=== PATIENT | female | born 1970 | race Caucasian/White ===

== ENCOUNTER 2017-07-01 16:01 | Emergency (ER) | payer OTHER ==
[2017-07-01] MEDS ORDERED: Octyl 2-Cyanoacrylate 1 Tube TOP ONE (16:19)
--- NOTE | 2017-07-01 16:19 | EDM.PDOC ---
ED HPI GENERAL MEDICAL PROBLEM - General Chief Complaint: Laceration Stated Complaint: CUT INDEX FINGER ON RT HAND Time Seen by Provider: 07/01/17 16:16 Source of Information: Reports: Patient History Limitations: Reports: No Limitations - History of Present Illness INITIAL COMMENTS - FREE TEXT/NARRATIVE: History of present illness: [46-year-old female coming in with laceration to the inner aspect of the second digit of the right hand. Patient acute she cut it at work.] Review of systems: As per history of present illness and below otherwise all systems reviewed and negative. Past medical history: As per history of present illness and as reviewed below otherwise noncontributory. Surgical history: As per history of present illness and as reviewed below otherwise noncontributory. Social history: No reported history of drug or alcohol abuse. Family history: As per history of present illness and as reviewed below otherwise noncontributory. Physical exam: HEENT: Atraumatic, normocephalic, pupils reactive, negative for conjunctival pallor or scleral icterus, mucous membranes moist, throat clear, neck supple, nontender, trachea midline. Lungs: Clear to auscultation, breath sounds equal bilaterally, chest nontender. Heart: S1S2, regular, negative for clicks, rubs, or JVD. Abdomen: Soft, nondistended, nontender. Negative for masses or hepatosplenomegaly. Negative for costovertebral tenderness. Pelvis: Stable nontender. Genitourinary: Deferred. Rectal: Deferred. Extremities: Approximate 1/2 cm laceration to the anterior aspect of the second digit of right hand. Neurovascular unremarkable. Neuro: Awake, alert, oriented. Cranial nerves II through XII unremarkable. Cerebellum unremarkable. Motor and sensory unremarkable throughout. Exam nonfocal. Area cleaned well and Steri-Strips approximating edges well with Dermabond applied over top Diagnostics: [] Therapeutics: [Steri-Strips Dermabond] Impression: [Laceration approximately 1.5 cm] Plan: [Clean and dry hands] Definitive disposition and diagnosis as appropriate pending reevaluation and review of above. right index finger Pain Score (Numeric/FACES): 2 - Related Data Allergies Allergy/AdvReac Type Severity Reaction Status Date / Time No Known Allergies Allergy Verified 07/01/17 16:10 Home Meds: Home Meds Norethindrone-Ethinyl Estrad [Dasetta] 1 each PO DAILY 04/26/14 [History] Oxybutynin [Oxybutynin ER] 1 tab PO DAILY 04/26/14 [History] Warfarin [Coumadin] 5 mg PO ASDIRECTED 07/19/15 [History] Past Medical History Cardiovascular History: Reports: Blood Clots/VTE/DVT Other Neuro History: pt states "blood clot in the brain" Hematologic History: Reports: Anticoagulation Therapy - Infectious Disease History Infectious Disease History: Reports: Chicken Pox - Past Surgical History Musculoskeletal Surgical History: Reports: Knee Replacement Social & Family History - Family History Family Medical History: Noncontributory - Tobacco Use Smoking Status *Q: Current Every Day Smoker Years of Tobacco use: 5 Packs/Tins Daily: 0.2 - Caffeine Use Caffeine Use: Reports: Coffee, Energy Drinks, Soda, Tea - Alcohol Use Days Per Week of Alcohol Use: 0 Number of Drinks Per Day: 0 Total Drinks Per Week: 0 - Recreational Drug Use Recreational Drug Use: No ED ROS GENERAL - Review of Systems Review Of Systems: See Below (See history of present illness) ED EXAM, SKIN/RASH Exam: See Below (History of present illness) Course - Vital Signs Last Recorded V/S: Last Vital Signs Temp 36.6 C 07/01/17 16:08 Pulse 82 07/01/17 16:08 Resp 16 07/01/17 16:08 BP 110/63 07/01/17 16:08 Pulse Ox 96 07/01/17 16:08 Departure - Departure Time of Disposition: 16:18 Disposition: Home, Self-Care 01 Condition: Good Clinical Impression: Laceration - Discharge Information Instructions: Laceration Care, Adult, [id number], Stitches, Lenny, or Adhesive Wound Closure, [id number] Referrals: Derick Laguerre MD [Primary Care Provider] - Additional Instructions: The following information is given to patients seen in the emergency department who are being discharged to home. This information is to outline your options for follow-up care. We provide all patients seen in our emergency department with a follow-up referral. The need for follow-up, as well as the timing and circumstances, are variable depending upon the specifics of your emergency department visit. If you don't have a primary care physician on staff, we will provide you with a referral. We always advise you to contact your personal physician following an emergency department visit to inform them of the circumstance of the visit and for follow-up with them and/or the need for any referrals to a consulting specialist. The emergency department will also refer you to a specialist when appropriate. This referral assures that you have the opportunity for follow-up care with a specialist. All of these measure are taken in an effort to provide you with optimal care, which includes your follow-up. Under all circumstances we always encourage you to contact your private physician who remains a resource for coordinating your care. When calling for follow-up care, please make the office aware that this follow-up is from your recent emergency room visit. If for any reason you are refused follow-up, please contact the [facility] Emergency Department at and asked to speak to the emergency department charge nurse. Keep area clean and dry Take medication as directed Follow-up with PCP in 1-2 days Return to ED as needed as discussed
[2017-07-01 16:44] VITALS: BP 123/77
== END 2017-07-01 16:35 | disposition home or self-care (01) ==
LOC: MW.ED 16:01
DX: S61.210A Laceration without foreign body of right index finger without damage to nail, initial encounter (principal); F17.210 Nicotine dependence, cigarettes, uncomplicated; Z79.899 Other long term (current) drug therapy; Z79.01 Long term (current) use of anticoagulants; W26.9XXA Contact with unspecified sharp object(s), initial encounter
CPT/HCPCS: 12001; 99282; A9270; 99281

== ENCOUNTER 2018-04-15 12:41 | Emergency (ER) | payer OTHER ==
[2018-04-15 12:51] VITALS: BP 119/87
--- NOTE | 2018-04-15 13:00 | EDM.PDOC ---
ED HPI GENERAL MEDICAL PROBLEM - General Chief Complaint: Laceration Stated Complaint: RIGHT HAND CUT Time Seen by Provider: 04/15/18 12:58 Source of Information: Reports: Patient History Limitations: Reports: No Limitations - History of Present Illness INITIAL COMMENTS - FREE TEXT/NARRATIVE: HISTORY AND PHYSICAL: History of present illness: Patient is a 47-year-old female here with complaint of laceration to her left pointer finger. She states occurred at work today at 8:30 this morning when she was cutting [place]. She works at [employer]. 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 Patient is up-to-date on tetanus shot. Review of systems: As per history of present illness and below otherwise all systems reviewed and negative. Past medical history: As per history of present illness and as reviewed below otherwise noncontributory. Surgical history: As per history of present illness and as reviewed below otherwise noncontributory. Social history: No reported history of drug or alcohol abuse. Family history: As per history of present illness and as reviewed below otherwise noncontributory. Physical exam: General: Patient sitting comfortably in no acute distress and nontoxic appearing HEENT: Atraumatic, normocephalic, pupils reactive, negative for conjunctival pallor or scleral icterus, mucous membranes moist, throat clear, neck supple, nontender, trachea midline. No meningeal signs. Lungs: Clear to auscultation, breath sounds equal bilaterally, chest nontender. Heart: S1S2, regular, negative for clicks, rubs, or overt murmur. Abdomen: Soft, nondistended, nontender. Negative for masses or hepatosplenomegaly. Negative for costovertebral tenderness. Pelvis: Stable nontender. Genitourinary: Deferred. Rectal: Deferred. Extremities: The left pointer finger nail is missing on the distal radial side. negative for cords or calf pain. Neurovascular unremarkable. Neuro: Awake, alert, oriented. Cranial nerves II through XII unremarkable. Cerebellum unremarkable. Motor and sensory unremarkable throughout. Exam nonfocal. Notes: Diagnostics: None Therapeutics: Tube gauze Prescriptions: None Impression: Finger laceration Plan: 1. Keep the area clean and dry. 2. Follow up with primary care provider 3. Return to ED as needed as discussed. Definitive disposition and diagnosis as appropriate pending reevaluation and review of above. left index finger Pain Score (Numeric/FACES): 1 - Related Data Allergies Allergy/AdvReac Type Severity Reaction Status Date / Time No Known Allergies Allergy Verified 04/15/18 12:47 Home Meds: Home Meds Norethindrone-Ethinyl Estrad [Dasetta] 1 each PO DAILY 04/26/14 [History] Oxybutynin [Oxybutynin ER] 1 tab PO DAILY 04/26/14 [History] Warfarin [Coumadin] 5 mg PO ASDIRECTED 07/19/15 [History] Past Medical History Cardiovascular History: Reports: Blood Clots/VTE/DVT Other Neuro History: pt states "blood clot in the brain" Hematologic History: Reports: Anticoagulation Therapy - Infectious Disease History Infectious Disease History: Reports: Chicken Pox - Past Surgical History Musculoskeletal Surgical History: Reports: Knee Replacement Social & Family History - Family History Family Medical History: Noncontributory - Caffeine Use Caffeine Use: Reports: Coffee, Energy Drinks, Soda, Tea ED ROS GENERAL - Review of Systems Review Of Systems: ROS reveals no pertinent complaints other than HPI. ED EXAM, SKIN/RASH Exam: See Below (see dictation) Course - Vital Signs Last Recorded V/S: Last Vital Signs Temp 36.6 C 04/15/18 12:48 Pulse 78 04/15/18 12:48 Resp 18 04/15/18 12:48 BP 119/87 04/15/18 12:48 Pulse Ox 96 04/15/18 12:48 Departure - Departure Time of Disposition: 13:18 Disposition: Home, Self-Care 01 Condition: Good Clinical Impression: Finger laceration - Discharge Information Referrals: PCP,Unknown [Primary Care Provider] - Forms: ED Department Discharge Additional Instructions: The following information is given to patients seen in the emergency department who are being discharged to home. This information is to outline your options for follow-up care. We provide all patients seen in our emergency department with a follow-up referral. The need for follow-up, as well as the timing and circumstances, are variable depending upon the specifics of your emergency department visit. If you don't have a primary care physician on staff, we will provide you with a referral. We always advise you to contact your personal physician following an emergency department visit to inform them of the circumstance of the visit and for follow-up with them and/or the need for any referrals to a consulting specialist. The emergency department will also refer you to a specialist when appropriate. This referral assures that you have the opportunity for follow-up care with a specialist. All of these measure are taken in an effort to provide you with optimal care, which includes your follow-up. Under all circumstances we always encourage you to contact your private physician who remains a resource for coordinating your care. When calling for follow-up care, please make the office aware that this follow-up is from your recent emergency room visit. If for any reason you are refused follow-up, please contact the [facility] Emergency Department at and asked to speak to the emergency department charge nurse. [facility] [address] [place] [id number] 1. Keep the area clean and dry. 2. Follow up with primary care provider 3. Return to ED as needed as discussed.
== END 2018-04-15 13:32 | disposition home or self-care (01) ==
LOC: MW.ED 12:41
DX: S61.211A Laceration without foreign body of left index finger without damage to nail, initial encounter (principal); W26.9XXA Contact with unspecified sharp object(s), initial encounter
CPT/HCPCS: 99283

== ENCOUNTER 2022-06-23 09:14 | Emergency (ER) | payer SELFPAY ==
[2022-06-23 09:33] VITALS: BP 121/65; PULSE 79
== END 2022-06-23 11:46 | disposition home or self-care (01) ==
LOC: MW.ED 09:14
DX: L97.919 Non-pressure chronic ulcer of unspecified part of right lower leg with unspecified severity (principal); R60.0 Localized edema; F17.210 Nicotine dependence, cigarettes, uncomplicated; Z79.899 Other long term (current) drug therapy; Z79.01 Long term (current) use of anticoagulants
CPT/HCPCS: 36415; 85610; 93971-26-RT; 93971-RT; 99284

== ENCOUNTER 2022-07-20 19:09 | Emergency (ER) | payer SELFPAY ==
[2022-07-21 00:23] VITALS: BP 106/64; PULSE 71
== END 2022-07-20 22:50 | disposition home or self-care (01) ==
LOC: MW.ED 19:09
DX: S80.11XA Contusion of right lower leg, initial encounter (principal); R60.0 Localized edema; Z86.718 Personal history of other venous thrombosis and embolism; Z79.01 Long term (current) use of anticoagulants
CPT/HCPCS: 93971-RT; 99284